=== PATIENT | female | born 1935 | race Caucasian/White ===

== ENCOUNTER 2016-11-23 15:19 | Emergency (ER) | payer OTHER ==
[2016-11-23 16:42] LABS: BASOPHIL % 0.2 % (0-2); PLATELET COUNT 167 x10^3mcL (130-400); RED CELL DISTRIBUTION WIDTH 13.1 % (11.5-14.5)
[2016-11-23 16:43] LABS: CALCIUM 8.8 mg/dL (8.5-10.1); CARBON DIOXIDE 23.2 mmol/L (21-32); CHLORIDE SERUM 104 mmol/L (98-107); CREATININE SERUM 0.7 mg/dL (0.6-1.0); GLUCOSE SERUM 99 mg/dL (74-106); POTASSIUM SERUM 3.6 mmol/L (3.5-5.1); SODIUM SERUM 140 mmol/L (136-145)
[2016-11-23 16:47] LABS: ALBUMIN 4.1 g/dL (3.4-5.0); ALKALINE PHOSPHATASE 51 U/L (46-116); ALT/SGPT 16 U/L (14-59); AST/SGOT 27 U/L (15-37); TOTAL PROTEIN, SERUM 7.3 g/dL (6.4-8.2)
[2016-11-23 16:51] LABS: microscopic required? YES; urine erythrocyte 2+ (NEGATIVE)
[2016-11-23 16:57] LABS: CK-MB 0.9 ng/mL (0-3.6)
[2016-11-23 19:03] VITALS: BP 113/76
== END 2016-11-23 19:04 | disposition home or self-care (01) ==
LOC: ED 15:19
PROVIDERS: Emergency Medicine
DX: J18.9 Pneumonia, unspecified organism (principal); I10 Essential (primary) hypertension; Z85.51 Personal history of malignant neoplasm of bladder
CPT/HCPCS: 83880; J7030; Q0092

== ENCOUNTER 2016-11-27 08:30 | Emergency (ER) | payer OTHER ==
[~2016-11-27] VITALS: Ht 154.9 cm; Wt 71.7 kg
[2016-11-27 08:35] VITALS: BP 124/58
== END 2016-11-27 09:04 | disposition home or self-care (01) ==
LOC: ED 08:30
DX: R42 Dizziness and giddiness (principal); R19.7 Diarrhea, unspecified; R79.89 Other specified abnormal findings of blood chemistry; I10 Essential (primary) hypertension; E78.00 Pure hypercholesterolemia, unspecified; Z79.2 Long term (current) use of antibiotics

== ENCOUNTER 2018-07-14 11:22 | Emergency (ER) | payer OTHER ==
[~2018-07-14] VITALS: Ht 157.5 cm; Wt 49.0 kg
[2018-07-14 11:26] VITALS: Ht 157.5 cm; Wt 49.0 kg
[2018-07-14 12:46] VITALS: BP 154/51
== END 2018-07-14 14:16 | disposition home or self-care (01) ==
LOC: ED 11:22
DX: S09.8XXA Other specified injuries of head, initial encounter (principal); I10 Essential (primary) hypertension; E78.00 Pure hypercholesterolemia, unspecified; F03.90 Unspecified dementia, unspecified severity, without behavioral disturbance, psychotic disturbance, mood disturbance, and anxiety; W18.39XA Other fall on same level, initial encounter; Y93.89 Activity, other specified; Y92.89 Other specified places as the place of occurrence of the external cause; Y99.8 Other external cause status
CPT/HCPCS: 90715; J2001